=== PATIENT | female | born 1980 | race Caucasian/White ===

== ENCOUNTER 2017-05-17 15:08 | Emergency (ER) | payer BC ==
[~2017-05-17] VITALS: Ht 175.3 cm; Wt 67.4 kg
[~2017-05-17 15:08] MED LIST: VIST50CA PO
[2017-05-17 15:52] VITALS: BP 108/64; PULSE 75; RESP 16; O2SAT 97
[2017-05-17] MEDS ORDERED: TRAZ50TA12 PO (16:06)
[2017-05-17] MEDS ORDERED: REME15TA PO (16:06)
[2017-05-17] MEDS ORDERED: LORA-373 PO (16:06)
[2017-05-17 16:10] VITALS: TEMP 97.1
[2017-05-17 16:11] LABS: BLOOD, URINE NEG (NEG); GLUCOSE,URINE NEG (NEG); KETONE, URINE NEG (NEG); NITRITE,URINE NEG (NEG); PH, URINE 5.5 (5.0-8.5)
--- NOTE | 2017-05-17 16:26 | PD ---
HPI Chief Complaint: Complaint Time Seen by Provider: 16:15 Travel History International Travel<30 days: No Contact w/Intl Traveler<30days: No Traveled to known affect area: No History of Present Illness HPI 36-year-old female presents to the emergency room for evaluation of pelvic pressure, dysuria, urgency, and frequency for the past 5 days. States she believes she has a bladder infection. She is taking [id number] Azo and left upper amoxicillin without symptoms. States her blood pressure severe and prevented her from being able to perform her activities of daily living yesterday. Reports moderate improvement in symptoms today. Associated nausea. Denies possibility of STD, back pain, vaginal discharge, fever, chills, and vomiting. Denies possibility of . PFSH Past Medical History Medical History: Denies Significant Hx ?: Not LMP: 04/27/17 Past Surgical History Other Surgery: Yes (BREAST AUGMENTATION) Social History Alcohol Use: Yes (OCC) Tobacco Use: Yes (1 PPD) Allergies-Medications (Allergen,Severity, Reaction): Coded Allergies: Penicillin (Verified Allergy, Severe, 05/17/17) ALLERGY Reported Meds & Prescriptions Reported Meds & Active Scripts Active Reported Trazodone (Trazodone HCl) 50 Mg Tab 50 Mg PO HS Remeron (Mirtazapine) 15 Mg Tab 7.5 Mg PO HS Lorazepam 0.5 Mg Tab 0.5 Mg PO HS PRN Review of Systems Except as stated in HPI: all other systems reviewed are Neg Physical Exam Narrative GENERAL: Well-nourished, well-developed female in no acute distress. Afebrile. Ambulatory. SKIN: Focused skin assessment warm/dry. HEAD: Normocephalic. EYES: No scleral icterus. No injection or drainage. NECK: Supple, trachea midline. No JVD or lymphadenopathy. CARDIOVASCULAR: Regular rate and rhythm without murmurs, gallops, or rubs. RESPIRATORY: Breath sounds equal bilaterally. No accessory muscle use. GASTROINTESTINAL: Abdomen soft, non-tender, nondistended. BACK: Nontender without obvious deformity. No CVA tenderness. Data Data Last Documented VS Vital Signs Date Time Temp Pulse Resp B/P Pulse Ox O2 Delivery O2 Flow Rate FiO2 05/17/17 16:10 97.1 05/17/17 15:52 75 16 108/64 97 Orders Urinalysis - C+S If Indicated (05/17/17 15:23) Ed Urine Pregnancytest Poc (05/17/17 15:23) Urine Culture (05/17/17 16:00) Labs Laboratory Tests Test 05/17/17 16:00 Urine Collection Type CLEAN CATCH Urine Color YELLOW Urine Turbidity CLEAR Urine pH 5.5 Urine Specific [place] 1.005 Urine Protein NEG mg/dL Urine Glucose (UA) NEG mg/dL Urine Ketones NEG mg/dL Urine Occult Blood NEG Urine Nitrite NEG Urine Bilirubin NEG Urine Leukocyte Esterase NEG Urine WBC 0-2 /hpf Urine Squamous Epithelial 6-8 /hpf Cells Urine Bacteria MOD /hpf Microscopic Urinalysis Comment CULTURE INDICATED Urine Collection Time 16:00 [facility] Medical Decision Making Medical Screen Exam Complete: Yes Emergency Medical Condition: Yes Medical Record Reviewed: Yes Differential Diagnosis STD, UTI, pyelonephritis Narrative Course 36-year-old female presents to the emergency room for evaluation of dysuria, urgency, frequency, and pelvic pressure for the past 5 days. Patient denies possibility of or STD. Physical exam reveals no abdominal pain, pelvic tenderness, or flank pain. Vital signs stable. test is negative. UA is unremarkable except for some bacteria and squamous cells, likely contaminated. Because patient has been taking antibiotics at home, her infection may be resolving so she will be treated with continuation of Keflex and Pyridium. Patient discharged with prescription for and told to follow up with a primary care physician or return for worsening symptoms. She understands and agrees to plan. Diagnosis Primary Impression: Urinary tract infection Qualified Code: N30.00 - Acute cystitis without hematuria Referrals: Primary Care Physician Patient Instructions: General Instructions, Urinary Tract Infection in Women ( ED) Additional Instructions: Rest and drink plenty of fluids. Take ibuprofen with food as directed, as needed for pain. Follow-up with a primary care physician. Return to the emergency room for worsening symptoms. Med/Other Pt SpecificInfo: Prescription(s) given Scripts Phenazopyridine (Pyridium)100 Mg [id number] Mg PO Q8H PRN (DYSURIA) #6 TAB Ref 0 Prov:José Cheatham MD 05/17/17 Cephalexin (Keflex)500 Mg [id number] Mg PO Q12H 7 Days Ref 0 Prov:José Cheatham MD 05/17/17 Disposition: 01 DISCHARGE HOME Condition: Stable Viola Maza May 17, 2017 16:26
[2017-05-17 16:38] LABS: BACTERIA, URINE MOD /hpf; COMMENT (UR) CULTURE INDICATED; CULTURE IF INDICATED CULTURE INDICATED; METHOD OF COLLECTION CLEAN CATCH; URINE COLOR YELLOW (YELLW/STRAW); WBC, URINE 0-2 /hpf (0-5)
[2017-05-17] MEDS ORDERED: CEPH-460 PO (16:44)
[2017-05-17] MEDS ORDERED: PHEN0.4T PO (16:44)
== END 2017-05-17 16:50 | disposition home or self-care (01) ==
LOC: PHED 15:08 → PHEFT 16:50
DX: N30.00 Acute cystitis without hematuria (principal); B96.89 Other specified bacterial agents as the cause of diseases classified elsewhere; F17.210 Nicotine dependence, cigarettes, uncomplicated; Z88.0 Allergy status to penicillin
CPT/HCPCS: 81001; 84703; 87086; 99283

== ENCOUNTER 2018-02-23 06:30 | Inpatient (IN) | payer BC ==
[~2018-02-23] VITALS: Ht 175.3 cm; Wt 93.0 kg
[2018-02-23] VITALS (54 sets, daily range): BP systolic 81–148; BP diastolic 51–106; PULSE 61–174; RESP 18; TEMP 97.5–98
[~2018-02-23 06:30] MED LIST changes: +CEPH-460 PO; +LORA0.5T PO; +PHEN0.4T PO; +REME15TA PO; +TRAZ50TA12 PO; -VIST50CA PO
[2018-02-23] MEDS ORDERED: Prenatal Vitamin PO (06:40)
[2018-02-23 07:25] LABS: AUTOMATED NEUTROPHIL # 6.6 TH/MM3 (1.8-7.7); BASOPHIL % 0.3 % (0.0-2.0); EOSINOPHIL # 0.1 TH/MM3 (0-0.4); EOSINOPHIL % 0.6 % (0.0-4.0); HEMATOCRIT 35.3 % (35.0-46.0); HEMOGLOBIN 12.2 GM/DL (11.6-15.3); LYMPH % 17.2 % (9.0-44.0); LYMPHOCYTE # 1.6 TH/MM3 (1.0-4.8); MEAN CELL VOLUME 89.4 FL (80.0-100.0); MEAN CORPUSCULAR HEMOGLOBIN 30.8 PG (27.0-34.0); MEAN CORPUSCULAR HGB CONC 34.5 % (32.0-36.0); MEAN PLATELET VOLUME 8.5 FL (7.0-11.0); MONO % 10.5 % (0.0-8.0); NEUT % 71.4 % (16.0-70.0); PLATELET COUNT 186 TH/MM3 (150-450); RED BLOOD COUNT 3.95 MIL/MM3 (4.00-5.30); RED CELL DISTRIBUTION WIDTH 13.1 % (11.6-17.2); WHITE BLOOD COUNT 9.2 TH/MM3 (4.0-11.0)
[2018-02-23 07:45] LABS: BACTERIA, URINE FEW /hpf; BILIRUBIN, URINE NEG (NEG); BLOOD, URINE SMALL (NEG); GLUCOSE,URINE NEG (NEG); KETONE, URINE NEG (NEG); NITRITE,URINE NEG (NEG); SQUAMOUS EPITHELIAL CELL URINE 5 /hpf (0-5); URINE COLOR LIGHT-YELLOW (YELLW/STRAW); URINE LEUKOCYTE ESTERASE NEG (NEG)
[2018-02-23] MEDS ORDERED: LACTATED RINGER'S 1000 ML BOLUS IV PRN (07:45)
[2018-02-23] MEDS ORDERED: CITRIC ACID-SODIUM CITRATE LIQ 30 ML UDC PO SCH (07:45)
[2018-02-23] MEDS ORDERED: LIDOCAINE HCL 1% 50 ML VIAL INFIL PRN (07:45)
[2018-02-23] MEDS ORDERED: NS 1000 ML IV PRN (07:45)
[2018-02-23] MEDS ORDERED: MINERAL OIL 10 ML VIAL TOPICAL PRN (07:45)
[2018-02-23] MEDS ORDERED: ONDANSETRON HCL 4 MG/2 ML VIAL IV PUSH PRN (07:45)
[2018-02-23] MEDS ORDERED: LACTATED RINGER'S 1000 ML IV SCH (07:45)
[2018-02-23] MEDS ORDERED: LIDOCAINE HCL 1% 50 ML VIAL I-DERMAL PRN (07:45)
[2018-02-23] MEDS ORDERED: NS 500 ML BOLUS IV PRN (07:45)
[2018-02-23] MEDS ORDERED: OXYTOCIN 30 UNITS 500ML PREMIX IV ONE (07:45)
[2018-02-23] MEDS ORDERED: OXYTOCIN 30 UNITS/NS 500ML PREMIX IV PRN (07:45)
--- NOTE | 2018-02-23 09:43 | PD.LABORPN ---
Subjective Subjective FULL H AND P DICTATED LAST NIGHT 37 yo P0 at 39 weeks with bishops of 9 desirous or induction and adequately counseled. No leaking, bleeding no NV, Blurred vision, RUQT GFM minimal contractions Objective Vital Signs Vital Signs Date Time Temp Pulse Resp B/P (MAP) Pulse Ox O2 Delivery O2 Flow Rate FiO2 02/23/18 09:18 97.7 18 02/23/18 09:18 62 108/61 (77) 02/23/18 09:15 67 02/23/18 09:10 66 02/23/18 09:05 72 02/23/18 09:00 72 02/23/18 08:55 62 02/23/18 08:50 69 02/23/18 08:43 74 106/59 (75) 02/23/18 08:15 18 02/23/18 08:13 74 118/68 (85) Objective 3/75%/-2 anterior and soft arom clear pelvis clinically adequate EFW 8 lb Weeks Gestation: 39 Gest Age Assessed Date: Feb 23, 2018 Gest Age Assessed Time: 07:30 Pt started active labor?: No Medical induction of labor?: Yes Medical induction start date: Feb 23, 2018 Medical induction start time: 07:30 Artificial rupture of membrane: Yes Artificial ROM date: Feb 23, 2018 Artifical ROM time: 07:30 Assessment/Plan Assessment and Plan term primip with good bishops score for arom and augmentation if indicated reviewed over weeks induction vs spontaneous labor and educated anticipate in next 12-18 hours VIPUL - Sheryl Molina MD Feb 23, 2018 09:43
[2018-02-23] MEDS ORDERED: fentaNYL 2MCG-BUPIV 0.125% INJ 100 ML ONE ×2 (14:57→23:34)
[2018-02-23] MEDS ORDERED: ePHEDrine/NS 25 MG/5 ML SYRINGE ONE (15:03)
[2018-02-23] MEDS ORDERED: LIDOCAINE HCL 1% PF 5 ML AMPULE ONE (15:09)
[2018-02-23] MEDS ORDERED: LIDOCAINE 2%/EPINEPHrine PF 1:200,000 20ML SDV ONE (15:09)
--- NOTE | 2018-02-23 18:30 | PD.LABORPN ---
Subjective Subjective comfortable with epidural Objective Vital Signs Vital Signs Date Time Temp Pulse Resp B/P (MAP) Pulse Ox O2 Delivery O2 Flow Rate FiO2 02/23/18 17:03 78 96/59 (71) 02/23/18 17:01 83 148/102 (117) 02/23/18 17:00 18 02/23/18 16:31 85 123/78 (93) 02/23/18 16:18 61 115/71 (86) 02/23/18 16:00 116/97 (103) 02/23/18 15:55 66 122/78 (93) 02/23/18 15:52 67 107/63 (78) 02/23/18 15:51 18 02/23/18 15:46 80 124/106 (112) 02/23/18 15:45 67 02/23/18 15:41 70 111/65 (80) 02/23/18 15:40 77 02/23/18 15:35 119/74 (89) 02/23/18 15:35 81 02/23/18 15:30 87 119/73 (88) 02/23/18 15:30 79 02/23/18 15:25 80 02/23/18 15:25 88 126/72 (90) 02/23/18 15:21 65 123/70 (87) 02/23/18 15:20 64 02/23/18 15:15 93 02/23/18 15:15 72 135/92 (106) 02/23/18 15:11 174 118/77 (91) 02/23/18 15:10 65 02/23/18 15:09 67 131/77 (95) 02/23/18 14:55 86 02/23/18 14:00 18 02/23/18 13:59 68 110/80 (90) 02/23/18 12:59 97.7 18 02/23/18 12:58 72 112/73 (86) 02/23/18 12:00 18 02/23/18 11:59 66 123/70 (87) 02/23/18 11:25 97.5 02/23/18 11:22 65 104/63 (77) 02/23/18 11:21 18 02/23/18 10:50 77 114/73 (87) Objective 80/-2 not well applied no caput strip category one Weeks Gestation: 39 Gest Age Assessed Date: Feb 23, 2018 Gest Age Assessed Time: 07:30 Pt started active labor?: No Medical induction of labor?: Yes Medical induction start date: Feb 23, 2018 Medical induction start time: 07:30 Artificial rupture of membrane: Yes Artificial ROM date: Feb 23, 2018 Artifical ROM time: 07:30 Assessment/Plan Assessment and Plan resume pitocin minimize checks anticipate Sheryl Molina MD Feb 23, 2018 18:30
[2018-02-23] MEDS ORDERED: CALCIUM CARBONATE 500 MG CHEWABLE TAB PO PRN (22:30)
[2018-02-24] VITALS (23 sets, daily range): BP systolic 96–134; BP diastolic 54–86; PULSE 73–125; RESP 18–20; TEMP 97.7–98.1; O2SAT 96–97
[2018-02-24] MEDS ORDERED: BUPIVACAINE HCL PF 0.25% 10 ML VIAL ONE (00:19)
[2018-02-24] MEDS ORDERED: LIDOCAINE 2%/EPINEPHrine PF 1:200,000 20ML SDV ONE (00:19)
[2018-02-24] MEDS ORDERED: fentaNYL 2MCG-BUPIV 0.125% 100 ML EPIDURAL PRN (00:30)
[2018-02-24] MEDS ORDERED: NO SYSTEM NARCOTICS PRN (00:30)
[2018-02-24] MEDS ORDERED: DO NOT ADMINISTER ANTICOAGULANTS PRN (00:30)
[2018-02-24] MEDS ORDERED: ePHEDrine/NS 25 MG/5 ML SYRINGE IV PUSH PRN (00:30)
--- NOTE | 2018-02-24 03:51 | PD.OB.DELI ---
Weeks gestation: 39 Gest age assessed date: Feb 23, 2018 Gest age assessed time: 07:30 Pt started active labor?: No Medical induction of labor?: Yes Medical induction start date: Feb 23, 2018 Medical induction start time: 07:30 Artificial rupture of membrane: Yes Artificial ROM date: Feb 23, 2018 Artifical ROM time: 07:30 Anesthesia: Epidural Episiotomy: None Vaginal Delivery: Normal Presentation: Occiput anterior Nuchal Cord: None Delayed cord clamping (45 sec): Yes Infant: Male Delivery date: Feb 24, 2018 Delivery time: 03:51 One Minute : 9 Five Minute : 9 Weight: 7 8 Placenta: Spontaneous delivery Laceration: No lacerations Estimated blood loss: 200 Sheryl Molina MD Feb 24, 2018 03:51
--- NOTE | 2018-02-24 03:55 | HHI.DCPOC ---
Discharge Care Plan Report Symptoms to Your Doctor -Temperature above 100.5 degrees -Redness, of incision or excessive or foul smelling drainage -Unusual pain or calf pain -Increased vaginal bleeding -Painful or difficulty urinating -Feelings of extreme sadness or anxiety after 2 weeks Goals to Promote Your Health * To prevent worsening of your condition and complications * To maintain your health at the optimal level Directions to Meet Your Goals Take your medications as prescribed Follow your dietary instruction Follow activity as directed Ensure plenty of rest for recovery Drink fluids for hydration Keep your appointments as scheduled Take your immunizations and boosters as scheduled If your symptoms worsen call your PCP, if no PCP go to Urgent Care Center or Emergency Room Smoking is Dangerous to Your Health. Avoid second hand smoke Call the 24-hour crisis hotline for domestic abuse at Sheryl Molina MD Feb 24, 2018 03:55
[2018-02-24] MEDS ORDERED: SODIUM CHLORIDE 0.9% FLUSH 10 ML FLUSH IV FLUSH PRN (04:00)
[2018-02-24] MEDS ORDERED: ACETAMINOPHEN 325 MG TAB PO PRN (04:00)
[2018-02-24] MEDS ORDERED: ZOLPIDEM TARTRATE 5 MG TAB PO PRN (04:00)
[2018-02-24] MEDS ORDERED: BENZOCAINE 20% TOPICAL SPRAY 60 ML CAN TOPICAL PRN (04:00)
[2018-02-24] MEDS ORDERED: ALUMINUM/MAGNESIUM/SIMETH 30 ML CUP PO PRN (04:00)
[2018-02-24] MEDS ORDERED: ONDANSETRON ODT 4 MG TAB PO PRN (04:00)
[2018-02-24] MEDS ORDERED: DOCUSATE SODIUM 50 MG/SENNA 8.6 MG TAB PO PRN (04:00)
[2018-02-24] MEDS ORDERED: OXYTOCIN 30 UNITS-500ML PREMIX 500 ML IV SCH (04:00)
[2018-02-24] MEDS: WITCH HAZEL 50%/GLYCERIN 12.5% 40 PAD JAR TOPICAL PRN (06:25)
[2018-02-24] MEDS: IBUPROFEN 800 MG TAB PO PRN (06:26)
--- NOTE | 2018-02-24 08:31 | HHI.OB ---
Subjective Post Day: 0 Remarks tired but doing well, just delivered a few hours ago Objective Vitals/I&O Vital Signs Date Time Temp Pulse Resp B/P (MAP) Pulse Ox O2 Delivery O2 Flow Rate FiO2 02/24/18 06:05 98.0 73 18 114/64 (81) 02/24/18 05:33 97 119/74 (89) 02/24/18 05:31 18 02/24/18 04:46 92 100/79 (86) 02/24/18 04:37 97.8 18 02/24/18 04:30 84 116/69 (85) 02/24/18 04:16 74 103/68 (80) 02/24/18 04:15 18 02/24/18 04:01 76 127/83 (98) 02/24/18 03:50 120 18 119/67 (84) 02/24/18 03:30 92 127/86 (100) 02/24/18 02:14 18 02/24/18 02:00 105 96/55 (69) 02/24/18 01:30 95 103/54 (70) 02/24/18 01:18 83 125/74 (91) 02/24/18 01:17 98.1 02/24/18 01:17 18 02/24/18 01:01 83 18 134/78 (96) 02/24/18 00:46 95 18 124/65 (84) 02/24/18 00:33 134/79 (97) 02/24/18 00:33 125 18 02/24/18 00:10 85 118/72 (87) 02/24/18 00:09 18 02/24/18 00:05 18 02/23/18 21:03 88 81/51 (61) 02/23/18 21:03 18 02/23/18 19:04 98.0 02/23/18 18:29 103 129/74 (92) 02/23/18 17:03 78 96/59 (71) 02/23/18 17:01 83 148/102 (117) 02/23/18 17:00 18 02/23/18 16:31 85 123/78 (93) 02/23/18 16:18 61 115/71 (86) 02/23/18 16:00 116/97 (103) 02/23/18 15:55 66 122/78 (93) 02/23/18 15:52 67 107/63 (78) 02/23/18 15:51 18 02/23/18 15:46 80 124/106 (112) 02/23/18 15:45 67 02/23/18 15:41 70 111/65 (80) 02/23/18 15:40 77 02/23/18 15:35 119/74 (89) 02/23/18 15:35 81 02/23/18 15:30 87 119/73 (88) 02/23/18 15:30 79 02/23/18 15:25 80 02/23/18 15:25 88 126/72 (90) 02/23/18 15:21 65 123/70 (87) 02/23/18 15:20 64 02/23/18 15:15 93 02/23/18 15:15 72 135/92 (106) 02/23/18 15:11 174 118/77 (91) 02/23/18 15:10 65 02/23/18 15:09 67 131/77 (95) 02/23/18 14:55 86 02/23/18 14:00 18 02/23/18 13:59 68 110/80 (90) 02/23/18 12:59 97.7 18 02/23/18 12:58 72 112/73 (86) 02/23/18 12:00 18 02/23/18 11:59 66 123/70 (87) 02/23/18 11:25 97.5 02/23/18 11:22 65 104/63 (77) 02/23/18 11:21 18 02/23/18 10:50 77 114/73 (87) 02/23/18 10:19 18 02/23/18 09:47 94 125/76 (92) 02/23/18 09:45 70 02/23/18 09:40 75 02/23/18 09:35 73 02/23/18 09:30 77 02/23/18 09:25 69 02/23/18 09:20 67 02/23/18 09:18 97.7 18 02/23/18 09:18 62 108/61 (77) 02/23/18 09:15 67 02/23/18 09:10 66 02/23/18 09:05 72 02/23/18 09:00 72 02/23/18 08:55 62 02/23/18 08:50 69 02/23/18 08:43 74 106/59 (75) Objective Remarks GENERAL: Well-nourished, well-developed patient. CARDIOVASCULAR: Regular rate and rhythm without murmurs, gallops, or rubs. RESPIRATORY: Breath sounds equal bilaterally. No accessory muscle use. ABDOMEN/GI: Abdomen soft, non-tender. Fundus: Firm, non-tender at umbilicus. GENITOURINARY: Light to moderate bleeding. EXTREMITIES: No cyanosis or edema, non-tender, without signs of DVT. Medications and IVs Current Medications Medications (Trade) Dose Ordered Sig/Diane Route Start Time Stop Time Status Last Admin Lactated Ringer's 1,000 ml @ 125 mls/hr Q8H IV 02/23/18 07:45 02/23/18 08:13 Lactated Ringer's 1,000 ml @ 3,000 mls/hr BOLUS PRN IV 02/23/18 07:45 Sodium Chloride 500 ml @ 1,000 mls/hr BOLUS PRN IV 02/23/18 07:45 Sodium Chloride 1,000 ml @ 100 mls/hr Q10H PRN IV 02/23/18 07:45 (Xylocaine 1% Inj (50 ml)) 0.1 ml UNSCH X1 PRN I-DERMAL 02/23/18 07:45 02/25/18 07:44 (Bicitra Liq) 30 ml ANODIZER PO 02/23/18 07:45 02/26/18 07:44 (Zofran Inj) 4 mg Q6H PRN IV PUSH 02/23/18 07:45 (fentaNYL INJ) 50 mcg Q1H PRN IV PUSH 02/23/18 07:45 02/23/18 12:10 (fentaNYL INJ) 100 mcg Q1H PRN IV PUSH 02/23/18 07:45 02/23/18 14:16 (Xylocaine 1% Inj (50 ml)) 10 ml UNSCH X1 PRN INFIL 02/23/18 07:45 02/25/18 07:44 (Muri-Lube Oil) 10 ml UNSCH PRN TOPICAL 02/23/18 07:45 02/24/18 03:45 Oxytocin 500 ml @ 0 mls/hr TITRATE PRN IV 02/23/18 07:45 02/23/18 08:15 (Tums Chew) 1,000 mg Q6H PRN PO 02/23/18 22:30 02/23/18 22:32 Miscellaneous Information No systemic narcotics to be given except... UNSCH PRN .XX 02/24/18 00:30 02/25/18 00:29 Miscellaneous Information DO NOT ADMINISTER ANY ANTICOAGUL... UNSCH PRN .XX 02/24/18 00:30 02/25/18 00:29 Fentanyl/ Bupivacaine HCl 100 ml @ 0 mls/hr TITRATE PRN EPIDURAL 02/24/18 00:30 02/23/18 23:35 (ePHEDrine/NS 25 MG/5 ML SYR) 10 mg UNSCH PRN IV PUSH 02/24/18 00:30 02/25/18 00:29 (NS Flush) 2 ml BID IV FLUSH 02/24/18 09:00 (NS Flush) 2 ml UNSCH PRN IV FLUSH 02/24/18 04:00 Oxytocin 500 ml @ 100 mls/hr CONTINUOUS IV 02/24/18 04:00 02/24/18 08:59 (Tylenol) 650 mg Q4H PRN PO 02/24/18 04:00 (Motrin) 800 mg Q8H PRN PO 02/24/18 04:00 02/24/18 06:26 (Americaine 20% Top Spr) 1 spray Q4H PRN TOPICAL 02/24/18 04:00 02/24/18 06:25 (Tucks Pads) 1 applic QID PRN TOPICAL 02/24/18 04:00 02/24/18 06:25 (Chel-Colace) 2 tab Q12H PRN PO 02/24/18 04:00 (Ambien) 5 mg HS PRN PO 02/24/18 04:00 (M-M-R Ii Inj) 0.5 ml ONCE ONCE SQ 02/24/18 16:00 02/24/18 16:01 (Boostrix Inj) 0.5 ml ONCE ONCE IM 02/24/18 16:00 02/24/18 16:01 (Mag-Al Plus Susp Liq) 15 ml Q8H PRN PO 02/24/18 04:00 (Zofran Odt) 4 mg Q6H PRN PO 02/24/18 04:00 Assessment/Plan Problem List: (1) (spontaneous vaginal delivery) ICD Codes: O80 - Encounter for full-term uncomplicated delivery Assessment and Plan PPD#0 routine care plans to exclusively breastfeed infant for circ tmrw prior to d/c Discharge Planning routine Abbey Owens MD Feb 24, 2018 08:31
[2018-02-24] MEDS ORDERED: SODIUM CHLORIDE 0.9% FLUSH 10 ML FLUSH IV FLUSH SCH (09:00)
[2018-02-24] MEDS ORDERED: MEASLES, MUMPS, RUBELLA VACCINE 0.5 ML VIAL SQ ONE (16:00)
[2018-02-24] MEDS ORDERED: DIPHTH/TETANUS/ACEL PERTUSSIS (BOOSTER) 0.5 ML VIAL/PFS IM ONE (16:00)
[2018-02-25] MEDS: IBUPROFEN 800 MG TAB PO PRN ×2 (06:16→21:47)
[2018-02-25 08:00] VITALS: BP 113/74; PULSE 73; RESP 20; TEMP 97.8; O2SAT 96
[2018-02-25] MEDS ORDERED: IBUP1TAB7 PO (09:17)
--- NOTE | 2018-02-25 09:17 | HHI.OB ---
Subjective Post Day: 1 Remarks doing well, wants to see medical consultant today due to infant with poor latch on left side Objective Vitals/I&O Vital Signs Date Time Temp Pulse Resp B/P (MAP) Pulse Ox O2 Delivery O2 Flow Rate FiO2 02/25/18 08:00 20 02/25/18 08:00 97.8 73 02/25/18 08:00 96 02/25/18 08:00 113/74 (87) 02/24/18 20:00 98.1 97 02/24/18 20:00 77 18 123/73 (90) 02/24/18 20:00 118/71 (87) Objective Remarks GENERAL: Well-nourished, well-developed patient. CARDIOVASCULAR: Regular rate and rhythm without murmurs, gallops, or rubs. RESPIRATORY: Breath sounds equal bilaterally. No accessory muscle use. ABDOMEN/GI: Abdomen soft, non-tender. Fundus: Firm, non-tender at umbilicus. GENITOURINARY: Light bleeding. EXTREMITIES: No cyanosis or edema, non-tender, without signs of DVT. Medications and IVs Current Medications Medications (Trade) Dose Ordered Sig/Diane Route Start Time Stop Time Status Last Admin Lactated Ringer's 1,000 ml @ 125 mls/hr Q8H IV 02/23/18 07:45 02/23/18 08:13 Lactated Ringer's 1,000 ml @ 3,000 mls/hr BOLUS PRN IV 02/23/18 07:45 Sodium Chloride 500 ml @ 1,000 mls/hr BOLUS PRN IV 02/23/18 07:45 Sodium Chloride 1,000 ml @ 100 mls/hr Q10H PRN IV 02/23/18 07:45 (Bicitra Liq) 30 ml PHOTO FINISHER PO 02/23/18 07:45 02/26/18 07:44 (Zofran Inj) 4 mg Q6H PRN IV PUSH 02/23/18 07:45 (fentaNYL INJ) 50 mcg Q1H PRN IV PUSH 02/23/18 07:45 02/23/18 12:10 (fentaNYL INJ) 100 mcg Q1H PRN IV PUSH 02/23/18 07:45 02/23/18 14:16 (Muri-Lube Oil) 10 ml UNSCH PRN TOPICAL 02/23/18 07:45 02/24/18 03:45 Oxytocin 500 ml @ 0 mls/hr TITRATE PRN IV 02/23/18 07:45 02/23/18 08:15 (Tums Chew) 1,000 mg Q6H PRN PO 02/23/18 22:30 02/23/18 22:32 Fentanyl/ Bupivacaine HCl 100 ml @ 0 mls/hr TITRATE PRN EPIDURAL 02/24/18 00:30 02/23/18 23:35 (NS Flush) 2 ml BID IV FLUSH 02/24/18 09:00 (NS Flush) 2 ml UNSCH PRN IV FLUSH 02/24/18 04:00 (Tylenol) 650 mg Q4H PRN PO 02/24/18 04:00 (Motrin) 800 mg Q8H PRN PO 02/24/18 04:00 02/25/18 06:16 (Americaine 20% Top Spr) 1 spray Q4H PRN TOPICAL 02/24/18 04:00 02/24/18 06:25 (Tucks Pads) 1 applic QID PRN TOPICAL 02/24/18 04:00 02/24/18 06:25 (Chel-Colace) 2 tab Q12H PRN PO 02/24/18 04:00 (Ambien) 5 mg HS PRN PO 02/24/18 04:00 (Mag-Al Plus Susp Liq) 15 ml Q8H PRN PO 02/24/18 04:00 (Zofran Odt) 4 mg Q6H PRN PO 02/24/18 04:00 Assessment/Plan Problem List: (1) (spontaneous vaginal delivery) ICD Codes: O80 - Encounter for full-term uncomplicated delivery Status: Acute Assessment and Plan PPD#1 routine care plans to exclusively breastfeed infant had circ this AM to see medical consultant today anticipate d/c to home tmrw Discharge Planning routine Abbey Owens MD Feb 25, 2018 09:17
[2018-02-25] MEDS: WITCH HAZEL 50%/GLYCERIN 12.5% 40 PAD JAR TOPICAL PRN (15:11)
[2018-02-25 20:00] VITALS: BP 115/69; PULSE 63; RESP 18; TEMP 98.2; O2SAT 97
[2018-02-26 08:00] VITALS: BP 112/76; PULSE 55; RESP 18; TEMP 97.8; O2SAT 97
--- NOTE | 2018-02-26 08:33 | HHI.OB ---
Subjective Post Day: 2 Remarks doing well Objective Vitals/I&O Vital Signs Date Time Temp Pulse Resp B/P (MAP) Pulse Ox O2 Delivery O2 Flow Rate FiO2 02/25/18 20:00 98.2 63 18 115/69 (84) 97 Objective Remarks GENERAL: Well-nourished, well-developed patient. CARDIOVASCULAR: Regular rate and rhythm without murmurs, gallops, or rubs. RESPIRATORY: Breath sounds equal bilaterally. No accessory muscle use. ABDOMEN/GI: Abdomen soft, non-tender. Fundus: Firm, non-tender at umbilicus. GENITOURINARY: Light bleeding. EXTREMITIES: No cyanosis or edema, non-tender, without signs of DVT. Medications and IVs Current Medications Medications (Trade) Dose Ordered Sig/Diane Route Start Time Stop Time Status Last Admin Lactated Ringer's 1,000 ml @ 125 mls/hr Q8H IV 02/23/18 07:45 02/23/18 08:13 Lactated Ringer's 1,000 ml @ 3,000 mls/hr BOLUS PRN IV 02/23/18 07:45 Sodium Chloride 500 ml @ 1,000 mls/hr BOLUS PRN IV 02/23/18 07:45 Sodium Chloride 1,000 ml @ 100 mls/hr Q10H PRN IV 02/23/18 07:45 (Zofran Inj) 4 mg Q6H PRN IV PUSH 02/23/18 07:45 (fentaNYL INJ) 50 mcg Q1H PRN IV PUSH 02/23/18 07:45 02/23/18 12:10 (fentaNYL INJ) 100 mcg Q1H PRN IV PUSH 02/23/18 07:45 02/23/18 14:16 (Muri-Lube Oil) 10 ml UNSCH PRN TOPICAL 02/23/18 07:45 02/24/18 03:45 Oxytocin 500 ml @ 0 mls/hr TITRATE PRN IV 02/23/18 07:45 02/23/18 08:15 (Tums Chew) 1,000 mg Q6H PRN PO 02/23/18 22:30 02/23/18 22:32 Fentanyl/ Bupivacaine HCl 100 ml @ 0 mls/hr TITRATE PRN EPIDURAL 02/24/18 00:30 02/23/18 23:35 (NS Flush) 2 ml BID IV FLUSH 02/24/18 09:00 (NS Flush) 2 ml UNSCH PRN IV FLUSH 02/24/18 04:00 (Tylenol) 650 mg Q4H PRN PO 02/24/18 04:00 (Motrin) 800 mg Q8H PRN PO 02/24/18 04:00 02/25/18 21:47 (Americaine 20% Top Spr) 1 spray Q4H PRN TOPICAL 02/24/18 04:00 02/24/18 06:25 (Tucks Pads) 1 applic QID PRN TOPICAL 02/24/18 04:00 02/25/18 15:11 (Chel-Colace) 2 tab Q12H PRN PO 02/24/18 04:00 (Ambien) 5 mg HS PRN PO 02/24/18 04:00 (Mag-Al Plus Susp Liq) 15 ml Q8H PRN PO 02/24/18 04:00 (Zofran Odt) 4 mg Q6H PRN PO 02/24/18 04:00 Assessment/Plan Problem List: (1) (spontaneous vaginal delivery) ICD Codes: O80 - Encounter for full-term uncomplicated delivery Status: Acute Assessment and Plan PPD#2 routine care plans to exclusively breastfeed had circ yesterday d/c to home today Discharge Planning routine Abbey Owens MD Feb 26, 2018 08:33
[2018-02-26] MEDS: IBUPROFEN 800 MG TAB PO PRN (09:16)
== END 2018-02-26 12:05 | disposition home or self-care (01) | DRG 775 ==
LOC: H2EB 06:30 → H1EA 02-24 05:45
PROVIDERS: ADMIT Obstetrics & Gynecology; ATTEND Obstetrics & Gynecology
PROC: 3E033VJ Introduction of Other Hormone into Peripheral Vein, Percutaneous Approach (ICD-10-PCS; 2018-02-23)
PROC: 10907ZC Drainage of Amniotic Fluid, Therapeutic from Products of Conception, Via Natural or Artificial Opening (ICD-10-PCS; 2018-02-23)
PROC: 10E0XZZ Delivery of Products of Conception, External Approach (ICD-10-PCS; principal; 2018-02-24)
DX: O80 Encounter for full-term uncomplicated delivery (principal); Z37.0 Single live birth; Z3A.39 39 weeks gestation of pregnancy
CPT/HCPCS: 59025; 80307; 81001; 85025; 85461; 86850; 86900; 86901; 90384; 90715; G0481; J2590; J2790; J3010; J7120